=== PATIENT | male | born 1990 | race Caucasian/White ===

== ENCOUNTER 2019-06-29 22:38 | Emergency (ER) | payer BC ==
[2019-06-29] MEDS ORDERED: Albuterol/Ipratropium 3.0-0.5 MG/3 ML Neb Soln NEB ONE (22:45)
[2019-06-29] MEDS ORDERED: predniSONE 20 MG Tab PO ONE (22:45)
--- NOTE | 2019-06-29 22:47 | EDM.PDOC ---
ED HPI GENERAL MEDICAL PROBLEM - General Chief Complaint: Respiratory Problem Stated Complaint: ASTHMA ATTACK Time Seen by Provider: 06/29/19 22:40 - History of Present Illness INITIAL COMMENTS - FREE TEXT/NARRATIVE: HISTORY AND PHYSICAL: History of present illness: Patient 28-year-old white male with history of asthma whose been well controlled and presents with concern of wheezing and shortness of breath last 1- 2 days he is not using an inhaler in some time and has none available he denies fever chills nausea vomiting he is a smoker. Review of systems: As per history of present illness and below otherwise all systems reviewed and negative. Past medical history: As per history of present illness and as reviewed below otherwise noncontributory. Surgical history: As per history of present illness and as reviewed below otherwise noncontributory. Social history: No reported history of drug or alcohol abuse. Family history: As per history of present illness and as reviewed below otherwise noncontributory. Physical exam: HEENT: Atraumatic, normocephalic, pupils reactive, negative for conjunctival pallor or scleral icterus, mucous membranes moist, throat clear, neck supple, nontender, trachea midline. Lungs: Diminished and expiratory wheezing noted no crackles or rhonchi, breath sounds equal bilaterally, chest nontender. Heart: S1S2, regular, negative for clicks, rubs, or JVD. Abdomen: Soft, nondistended, nontender. Negative for masses or hepatosplenomegaly. Negative for costovertebral tenderness. Pelvis: Stable nontender. Genitourinary: Deferred. Rectal: Deferred. Extremities: Atraumatic, negative for cords or calf pain. Neurovascular unremarkable. Neuro: Awake, alert, oriented. Cranial nerves II through XII unremarkable. Cerebellum unremarkable. Motor and sensory unremarkable throughout. Exam nonfocal. Diagnostics: Chest x-ray Therapeutics: Albuterol ipratropium nebulizer prednisone 60 mg by mouth Impression: #1 acute asthmatic exacerbation Definitive disposition and diagnosis as appropriate pending reevaluation and review of above. - Related Data Allergies Allergy/AdvReac Type Severity Reaction Status Date / Time No Known Allergies Allergy Verified 06/29/19 22:50 Home Meds: Home Meds Inhaler For Asthma 06/29/19 [History] ED ROS GENERAL - Review of Systems Review Of Systems: ROS reveals no pertinent complaints other than HPI. ED EXAM, GENERAL - Physical Exam Exam: See Below (See dictation) Course - Vital Signs Last Recorded V/S: Last Vital Signs Temp 36.4 C 06/29/19 23:48 Pulse 90 06/29/19 23:48 Resp 18 06/29/19 23:48 BP 131/78 06/29/19 23:48 Pulse Ox 95 06/29/19 23:48 - Orders/Labs/Meds Orders: Active Orders 24 hr Category Date Time Status RT Aerosol Therapy [RC] ASDIRECTED Care 06/29/19 22:46 Active Meds: Medications Discontinued Medications Generic Name Dose Route Start Last Admin Trade Name Freq PRN Reason Stop Dose Admin Albuterol/Ipratropium 3 ml 06/29/19 22:45 06/29/19 22:57 Duoneb 3.0-0.5 Mg/3 Ml NEB 06/29/19 22:46 3 ml ONETIME ONE Administration Prednisone 60 mg 06/29/19 22:45 06/29/19 22:55 Prednisone PO 06/29/19 22:46 60 mg ONETIME ONE Administration Departure - Departure Time of Disposition: 22:47 Disposition: Home, Self-Care 01 Condition: Good Clinical Impression: Acute asthma - Discharge Information Referrals: PCP,None [Primary Care Provider] - Forms: ED Department Discharge Additional Instructions: The following information is given to patients seen in the emergency department who are being discharged to home. This information is to outline your options for follow-up care. We provide all patients seen in our emergency department with a follow-up referral. The need for follow-up, as well as the timing and circumstances, are variable depending upon the specifics of your emergency department visit. If you don't have a primary care physician on staff, we will provide you with a referral. We always advise you to contact your personal physician following an emergency department visit to inform them of the circumstance of the visit and for follow-up with them and/or the need for any referrals to a consulting specialist. The emergency department will also refer you to a specialist when appropriate. This referral assures that you have the opportunity for followup care with a specialist. All of these measure are taken in an effort to provide you with optimal care, which includes your followup. Under all circumstances we always encourage you to contact your private physician who remains a resource for coordinating your care. When calling for followup care, please make the office aware that this follow-up is from your recent emergency room visit. If for any reason you are refused follow-up, please contact the [facility] emergency department at and asked to speak to the emergency department charge nurse. Albuterol Medrol as prescribed. Smoking follow-up primary medical doctor return as needed as discussed - My Orders Last 24 Hours: My Active Orders 06/29/19 22:46 RT Aerosol Therapy [RC] ASDIRECTED - Assessment/Plan Last 24 Hours: My Active Orders 06/29/19 22:46 RT Aerosol Therapy [RC] ASDIRECTED
--- NOTE | 2019-06-29 23:27 | CR ---
HISTORY: Shortness of breath and asthma. COMPARISON: None available FINDINGS: A portable erect AP view of the chest was obtained at 23 0 7 hours. The lungs are clear. No focal or diffuse infiltrates are present. The heart is normal in size. The mediastinum is normal in appearance. The osseous structures are normal in appearance for the patient`s age. IMPRESSION: Normal portable chest single view. Dictated by Stiven Sharpe MD @ Jun 29 2019 11:24PM Signed by Dr. Stiven Sharpe @ Jun 29 2019 11:25PM
== END 2019-06-30 00:05 | disposition home or self-care (01) ==
LOC: MW.ED 22:38
DX: J45.901 Unspecified asthma with (acute) exacerbation (principal); Z79.899 Other long term (current) drug therapy
CPT/HCPCS: 71045; 94640; 99285; A9270; 99283; J7620-GY

== ENCOUNTER 2020-04-14 07:28 | Inpatient (IN) | payer BC ==
--- NOTE | 2020-04-14 07:47 | EDM.PDOC ---
ED HPI GENERAL MEDICAL PROBLEM - General Chief Complaint: Skin Complaint Stated Complaint: RASH ON LT LEG Time Seen by Provider: 04/14/20 07:35 Source of Information: Reports: Patient History Limitations: Reports: No Limitations - History of Present Illness INITIAL COMMENTS - FREE TEXT/NARRATIVE: 29-year-old male with no past medical history presents with worsening rash to the right lower extremity since Thursday. Rash started in the right anterior mid tib-fib, has radiated to the right knee and right ankle, associated with mild irritation, pruritus, redness, warmth. Denies fever, chills, nausea, vomiting, history of diabetes. He was started on Keflex per his PCP 3 days ago and the rash has progressively worsened. ROS: A 10-point review of systems, other than pertinent positives and negatives as stated per HPI, is otherwise negative Past medical history: No additional pertinent history Past Surgical history: No additional pertinent history Social history: No additional pertinent history Family history: No additional pertinent history PHYSICAL EXAM General: AOx4, GCS = 15, No distress HEENT: dry mucous membrane Neck: supple, no meningismus, no Kernig or Brudzinski Cardiac: S1S2 RRR Respiratory: CTAB, no crackles or rales, no wheezing Abdomen: Soft, nontender, no rebound or guarding, nondistended, no pulsatile mass. Back: nontender Musculoskeletal: NVI distally, right anterior tib/fib extensive erythema, mild warmth, mildly indurated. Compartments soft, no tenderness to posterior calf or thigh. Neuro: No focal deficits, CN 2 - 12 WNL. - Related Data Allergies Allergy/AdvReac Type Severity Reaction Status Date / Time No Known Allergies Allergy Verified 04/14/20 07:40 Home Meds: Home Meds cephALEXin [Cephalexin] 500 mg PO BID 04/14/20 [History] Past Medical History Respiratory History: Reports: Asthma - Infectious Disease History Infectious Disease History: Reports: Chicken Pox - Past Surgical History Respiratory Surgical History: Reports: None Social & Family History - Family History Family Medical History: Noncontributory - Caffeine Use Caffeine Use: Reports: None ED ROS GENERAL - Review of Systems Review Of Systems: Comprehensive ROS is negative, except as noted in HPI. ED EXAM, SKIN/RASH Exam: See Below (see dictation) EKG INTERPRETATION EKG Interpretation Comments: 56 Bpm, sinus bradycardia, normal QRS interval, no STEMI. EKG and rhythm strip interpreted by me at 0810 Course - Vital Signs Last Recorded V/S: Last Vital Signs Temp 96.3 F L 04/14/20 07:38 Pulse 59 L 04/14/20 08:14 Resp 16 04/14/20 08:14 BP 101/57 L 04/14/20 08:14 Pulse Ox 97 04/14/20 08:14 - Orders/Labs/Meds Orders: Active Orders 24 hr Category Date Time Status EKG Documentation Completion [RC] STAT Care 04/14/20 08:10 Active Tibia Fibula Rt [CR] Stat Exams 04/14/20 08:02 Taken CULTURE BLOOD [BC] Stat Lab 04/14/20 07:54 Received CULTURE BLOOD [BC] Stat Lab 04/14/20 08:06 Received PROCALCITONIN [REF] Stat Lab 04/14/20 07:54 Stop Req Sodium Chloride 0.9% [Normal Saline] Med 04/14/20 07:53 Active 10 ml IV ASDIRECTED PRN Sodium Chloride 0.9% [Normal Saline] 1,000 ml Med 04/14/20 08:00 Active IV ASDIRECTED Sodium Chloride 0.9% [Saline Flush] Med 04/14/20 07:53 Active 10 ml FLUSH ASDIRECTED PRN Sodium Chloride 0.9% [Saline Flush] Med 04/14/20 07:53 Active 2.5 ml FLUSH ASDIRECTED PRN VANCOmycin/Water for INJ (PEG) [VANCOmycin 1.5 GM/300 Med 04/14/20 07:59 Active ML Premix] 1.5 gm Premix Bag 1 bag IV ONETIME Blood Culture x2 Reflex Set [OM.PC] Stat Oth 04/14/20 07:53 Ordered Peripheral IV Insertion Adult [OM.PC] Stat Oth 04/14/20 07:53 Ordered Medication Orders Sodium Chloride (Normal Saline) 1,000 mls @ 125 mls/hr IV ASDIRECTED ANDRES Last Infusion: 04/14/20 08:14 Dose: 125 mls/hr Documented by: Infusion: 04/14/20 08:09 Dose: 999 mls/hr Documented by: Admin: 04/14/20 08:02 Dose: 125 mls/hr Documented by: KAYLEEN Vancomycin HCl 1.5 gm/ Premix 300 mls @ 150 mls/hr IV ONETIME ONE Stop: 04/14/20 09:58 Last Admin: 04/14/20 08:05 Dose: 150 mls/hr Documented by: KAYLEEN Sodium Chloride (Normal Saline) 10 ml IV ASDIRECTED PRN PRN Reason: IV Use Last Admin: 04/14/20 08:02 Dose: 10 ml Documented by: KAYLEEN Sodium Chloride (Saline Flush) 10 ml FLUSH ASDIRECTED PRN PRN Reason: Keep Vein Open Last Admin: 04/14/20 08:02 Dose: 10 ml Documented by: KAYLEEN Sodium Chloride (Saline Flush) 2.5 ml FLUSH ASDIRECTED PRN PRN Reason: Keep Vein Open Last Admin: 04/14/20 08:02 Dose: 2.5 ml Documented by: KAYLEEN Labs: Laboratory Tests 04/14/20 04/14/20 04/14/20 Range/Units 07:54 07:54 07:54 WBC 5.62 (4.0-11.0) K/uL RBC 4.80 (4.50-5.90) M/uL Hgb 14.1 (13.0-17.0) g/dL Hct 43.1 (38.0-50.0) % MCV 89.8 (80.0-98.0) fL MCH 29.4 (27.0-32.0) pg MCHC 32.7 (31.0-37.0) g/dL RDW Std Deviation 43.8 (28.0-62.0) fl RDW Coeff of Elizabeth 13 (11.0-15.0) % Plt Count 314 (150-400) K/uL MPV 10.40 (7.40-12.00) fL Neut % (Auto) 47.2 L (48.0-80.0) % Lymph % (Auto) 26.9 (16.0-40.0) % [place] % (Auto) 10.5 (0.0-15.0) % Eos % (Auto) 14.9 H (0.0-7.0) % Baso % (Auto) 0.5 (0.0-1.5) % Neut # (Auto) 2.7 (1.4-5.7) K/uL Lymph # (Auto) 1.5 (0.6-2.4) K/uL [place] # (Auto) 0.6 (0.0-0.8) K/uL Eos # (Auto) 0.8 H (0.0-0.7) K/uL Baso # (Auto) 0.0 (0.0-0.1) K/uL Nucleated RBC % 0.0 /100WBC Nucleated RBCs # 0 K/uL ESR 4 (0-14) mm/hr Sodium 140 (136-148) mmol/L Potassium 4.2 (3.5-5.1) mmol/L Chloride 106 (98-107) mmol/L Carbon Dioxide 26.6 (21.0-32.0) mmol/L BUN 18 (7.0-18.0) mg/dL Creatinine 1.3 (0.8-1.3) mg/dL Est Cr Clr Drug Dosing 85.01 mL/min Estimated GFR (MDRD) > 60.0 ml/min Glucose 103 (74-106) mg/dL Calcium 8.6 (8.5-10.1) mg/dL Total Bilirubin 0.2 (0.2-1.0) mg/dL AST 24 (15-37) IU/L ALT 47 (14-63) IU/L Alkaline Phosphatase 112 (46-116) U/L C-Reactive Protein < 0.20 (0.00-0.90) mg/dL Total Protein 7.3 (6.4-8.2) g/dL Albumin 3.9 (3.4-5.0) g/dL Globulin 3.4 (2.6-4.0) g/dL Albumin/Globulin Ratio 1.1 (0.9-1.6) Meds: Medications Generic Name Dose Route Start Last Admin Trade Name Freq PRN Reason Stop Dose Admin Sodium Chloride 1,000 mls @ 125 mls/hr 04/14/20 08:00 04/14/20 08:14 Normal Saline IV 125 mls/hr ASDIRECTED ANDRES Infusion Vancomycin HCl 1.5 gm/ Premix 300 mls @ 150 mls/hr 04/14/20 07:59 04/14/20 08:05 IV 04/14/20 09:58 150 mls/hr ONETIME ONE Administration Sodium Chloride 10 ml 04/14/20 07:53 04/14/20 08:02 Normal Saline IV 10 ml ASDIRECTED PRN Administration IV Use Sodium Chloride 10 ml 04/14/20 07:53 04/14/20 08:02 Saline Flush FLUSH 10 ml ASDIRECTED PRN Administration Keep Vein Open Sodium Chloride 2.5 ml 04/14/20 07:53 04/14/20 08:02 Saline Flush FLUSH 2.5 ml ASDIRECTED PRN Administration Keep Vein Open Discontinued Medications Generic Name Dose Route Start Last Admin Trade Name Freq PRN Reason Stop Dose Admin Diphenhydramine HCl 25 mg 04/14/20 07:53 04/14/20 08:01 Benadryl IVPUSH 04/14/20 07:54 25 mg ONETIME ONE Administration - Re-Assessments/Exams Free Text/Narrative Re-Assessment/Exam: 04/14/20 08:07 Patient blood pressure dropped to 80s over 40s immediately after blood draw, he is pale and clammy, heart rate in the high 40s, will check EKG. 04/14/20 09:[address] Groves, who agrees to admit patient. The hospitalist's documentation supersedes all other documentation on this patient with regard to any conflicts or discrepancies from this point forward. Any emergency conditions have been treated to the ability of the ED prior to admission. MEDICAL DECISION MAKING: I reviewed the patients past medical records, lab and radiographic findings. I discussed the case with him. My differential diagnosis included: Cellulitis failed outpatient therapy, necrotizing fasciitis. Patient needs IV antibiotics given that he has failed Keflex. Rash has progressed extensively up to the knee and the ankle. Patient likely developed a vasovagal response from IV blood draw, causing him to be hypotensive and bradycardic. This is transient and quickly improved with IV fluids. Patient was given IV vancomycin and cefepime in the ER. Discussed with Dr. Phoenix, he does not suspect necrotizing fasciitis. Departure - Departure Time of Disposition: :27 Disposition: Admitted As Inpatient 66 Condition: Good Clinical Impression: Cellulitis Qualifiers: Site of cellulitis: extremity Site of cellulitis of extremity: lower extremity Laterality: right Qualified Code(s): L03.115 - Cellulitis of right lower limb - Discharge Information *PRESCRIPTION DRUG MONITORING PROGRAM REVIEWED*: Not Applicable *COPY OF PRESCRIPTION DRUG MONITORING REPORT IN PATIENT DAMIEN: Not Applicable Instructions: Cellulitis, Adult Referrals: PCP,None [Primary Care Provider] - Forms: ED Department Discharge Sepsis Event Note (ED) - Focused Exam Vital Signs: Vital Signs Temp Pulse Resp BP Pulse Ox 04/14/20 08:14 59 L 16 101/57 L 97 04/14/20 08:09 45 L 15 86/43 L 95 04/14/20 07:38 96.3 F L 74 16 135/93 H 98 - My Orders Last 24 Hours: My Active Orders 04/14/20 07:53 Sodium Chloride 0.9% [Normal Saline] 10 ml IV ASDIRECTED PRN Sodium Chloride 0.9% [Saline Flush] 10 ml FLUSH ASDIRECTED PRN Sodium Chloride 0.9% [Saline Flush] 2.5 ml FLUSH ASDIRECTED PRN Blood Culture x2 Reflex Set [OM.PC] Stat Peripheral IV Insertion Adult [OM.PC] Stat 04/14/20 07:54 CULTURE BLOOD [BC] Stat PROCALCITONIN [REF] Stat 04/14/20 07:59 VANCOmycin/Water for INJ (PEG) [VANCOmycin 1.5 GM/300 ML Premix] 1.5 gm Premix Bag 1 bag IV ONETIME 04/14/20 08:00 Sodium Chloride 0.9% [Normal Saline] 1,000 ml IV ASDIRECTED 04/14/20 08:02 Tibia Fibula Rt [CR] Stat 04/14/20 08:06 CULTURE BLOOD [BC] Stat 04/14/20 08:10 EKG Documentation Completion [RC] STAT - Assessment/Plan Last 24 Hours: My Active Orders 04/14/20 07:53 Sodium Chloride 0.9% [Normal Saline] 10 ml IV ASDIRECTED PRN Sodium Chloride 0.9% [Saline Flush] 10 ml FLUSH ASDIRECTED PRN Sodium Chloride 0.9% [Saline Flush] 2.5 ml FLUSH ASDIRECTED PRN Blood Culture x2 Reflex Set [OM.PC] Stat Peripheral IV Insertion Adult [OM.PC] Stat 04/14/20 07:54 CULTURE BLOOD [BC] Stat PROCALCITONIN [REF] Stat 04/14/20 07:59 VANCOmycin/Water for INJ (PEG) [VANCOmycin 1.5 GM/300 ML Premix] 1.5 gm Premix Bag 1 bag IV ONETIME 04/14/20 08:00 Sodium Chloride 0.9% [Normal Saline] 1,000 ml IV ASDIRECTED 04/14/20 08:02 Tibia Fibula Rt [CR] Stat 04/14/20 08:06 CULTURE BLOOD [BC] Stat 04/14/20 08:10 EKG Documentation Completion [RC] STAT
[2020-04-14] MEDS ORDERED: diphenhydrAMINE 50 MG/ML SDV IVPUSH ONE (07:53)
[2020-04-14] MEDS ORDERED: Vancomycin 1.5 GM in Sodium Chloride 0.9% 500 ML IV ONE (07:53)
[2020-04-14] MEDS ORDERED: Sodium Chloride 0.9% 10 ML SDV IV PRN (07:53)
[2020-04-14] MEDS ORDERED: Sodium Chloride 0.9% 2.5 ML Syringe FLUSH PRN (07:53)
[2020-04-14] MEDS ORDERED: Sodium Chloride 0.9% 10 ML Syringe FLUSH PRN (07:53)
[2020-04-14] MEDS ORDERED: Sodium Chloride 0.9% 1,000 ML IV SCH (08:00)
[2020-04-14 08:28] LABS: BLOOD UREA NITROGEN,BUN 18 mg/dL (7.0-18.0); CARBON DIOXIDE,CO2 26.6 mmol/L (21.0-32.0); CHLORIDE,CL 106 mmol/L (98-107); GLUCOSE RANDOM 103 mg/dL (74-106); POTASSIUM,K 4.2 mmol/L (3.5-5.1); SODIUM,NA 140 mmol/L (136-148)
--- NOTE | 2020-04-14 09:30 | CR ---
Right tibia and fibula: 2 views of the right tibia and fibula were obtained. Comparison: No previous study. Mild soft tissue swelling is identified. No soft tissue air or radiopaque foreign body is seen. Bony structures show no acute fracture. Impression: 1. Mild soft tissue swelling. 2. No other acute abnormality is identified on right tibia and fibula exam. Diagnostic code #2 This report was dictated in MDT
[2020-04-14] MEDS ORDERED: Cefepime 2 GM in Premix Bag 1 BAG IV ONE (10:24)
--- NOTE | 2020-04-14 11:34 | PCM.HP.2 ---
H&P History of Present Illness - General Date of Service: 04/14/20 Admit Problem/Dx: Admission Diagnosis/Problem Admission Diagnosis/Problem Cellulitis - History of Present Illness Initial Comments - Free Text/Narative: 29 yo male with past medical history of asthma who presents with right lower leg rash. Three weeks ago he slid while playing baseball and developed a large abrasion on his right gordon. The abrasion initially scabbed over and healed well but two weeks ago he developed erythema around the area. Three days ago he was prescribed Keflex for a right leg cellulitis but the rash has worsened. The erythema extends from his ankles up to just below his knee and is circumferential. He denies any fevers, chills, nausea, pain, or swelling. - Related Data Allergies/Adverse Reactions: Allergies Allergy/AdvReac Type Severity Reaction Status Date / Time No Known Allergies Allergy Verified 04/14/20 07:40 Home Medications: Home Meds cephALEXin [Cephalexin] 500 mg PO BID 04/14/20 [History] Past Medical History HEENT History: Reports: None Cardiovascular History: Reports: None Respiratory History: Reports: Asthma Gastrointestinal History: Reports: None Genitourinary History: Reports: None Musculoskeletal History: Reports: None Neurological History: Reports: None Psychiatric History: Reports: None Endocrine/Metabolic History: Reports: None Hematologic History: Reports: None Immunologic History: Reports: None Oncologic (Cancer) History: Reports: None Dermatologic History: Reports: None - Infectious Disease History Infectious Disease History: Reports: Chicken Pox - Past Surgical History Respiratory Surgical History: Reports: None Social & Family History - Family History Family Medical History: Noncontributory - Tobacco Use Smoking Status *Q: Former Smoker Used Tobacco, but Quit: Yes Month/Year Tobacco Last Used: 2019 - Caffeine Use Caffeine Use: Reports: None - Recreational Drug Use Recreational Drug Use: No H&P Review of Systems - Review of Systems: Review Of Systems: Comprehensive ROS is negative, except as noted in HPI. Exam - Exam Exam: See Below - Vital Signs Vital Signs: Last Vital Signs Temp 35.7 C L 04/14/20 07:38 Pulse 68 04/14/20 09:40 Resp 18 04/14/20 09:40 BP 108/65 04/14/20 09:40 Pulse Ox 98 04/14/20 09:40 Weight: 102.6 kg - Exam General: Alert, Oriented HEENT: Conjunctiva Clear Neck: Supple, Trachea Midline Lungs: Clear to Auscultation, Normal Respiratory Effort Cardiovascular: Regular Rate, Regular Rhythm GI/Abdominal Exam: Normal Bowel Sounds, Soft, Non-Tender Extremities: Non-Tender, No Pedal Edema Skin: Other (erythema of right leg from ankle to knee. on anterior lower leg 10 by 5 cm area of healing abrasion., no area of fluctuance or drainage.) - Patient Data Lab Results Last 24 hrs: Laboratory Results - last 24 hr 04/14/20 04/14/20 04/14/20 Range/Units 07:54 07:54 07:54 WBC 5.62 (4.0-11.0) K/uL RBC 4.80 (4.50-5.90) M/uL Hgb 14.1 (13.0-17.0) g/dL Hct 43.1 (38.0-50.0) % MCV 89.8 (80.0-98.0) fL MCH 29.4 (27.0-32.0) pg MCHC 32.7 (31.0-37.0) g/dL RDW Std Deviation 43.8 (28.0-62.0) fl RDW Coeff of Elizabeth 13 (11.0-15.0) % Plt Count 314 (150-400) K/uL MPV 10.40 (7.40-12.00) fL Neut % (Auto) 47.2 L (48.0-80.0) % Lymph % (Auto) 26.9 (16.0-40.0) % [place] % (Auto) 10.5 (0.0-15.0) % Eos % (Auto) 14.9 H (0.0-7.0) % Baso % (Auto) 0.5 (0.0-1.5) % Neut # (Auto) 2.7 (1.4-5.7) K/uL Lymph # (Auto) 1.5 (0.6-2.4) K/uL [place] # (Auto) 0.6 (0.0-0.8) K/uL Eos # (Auto) 0.8 H (0.0-0.7) K/uL Baso # (Auto) 0.0 (0.0-0.1) K/uL Nucleated RBC % 0.0 /100WBC Nucleated RBCs # 0 K/uL ESR 4 (0-14) mm/hr Sodium 140 (136-148) mmol/L Potassium 4.2 (3.5-5.1) mmol/L Chloride 106 (98-107) mmol/L Carbon Dioxide 26.6 (21.0-32.0) mmol/L BUN 18 (7.0-18.0) mg/dL Creatinine 1.3 (0.8-1.3) mg/dL Est Cr Clr Drug Dosing 85.01 mL/min Estimated GFR (MDRD) > 60.0 ml/min Glucose 103 (74-106) mg/dL Calcium 8.6 (8.5-10.1) mg/dL Total Bilirubin 0.2 (0.2-1.0) mg/dL AST 24 (15-37) IU/L ALT 47 (14-63) IU/L Alkaline Phosphatase 112 (46-116) U/L C-Reactive Protein < 0.20 (0.00-0.90) mg/dL Total Protein 7.3 (6.4-8.2) g/dL Albumin 3.9 (3.4-5.0) g/dL Globulin 3.4 (2.6-4.0) g/dL Albumin/Globulin Ratio 1.1 (0.9-1.6) COVID-19 ([facility]) (NEGATIVE) 04/14/20 Range/Units 09:45 WBC (4.0-11.0) K/uL RBC (4.50-5.90) M/uL Hgb (13.0-17.0) g/dL Hct (38.0-50.0) % MCV (80.0-98.0) fL MCH (27.0-32.0) pg MCHC (31.0-37.0) g/dL RDW Std Deviation (28.0-62.0) fl RDW Coeff of Elizabeth (11.0-15.0) % Plt Count (150-400) K/uL MPV (7.40-12.00) fL Neut % (Auto) (48.0-80.0) % Lymph % (Auto) (16.0-40.0) % [place] % (Auto) (0.0-15.0) % Eos % (Auto) (0.0-7.0) % Baso % (Auto) (0.0-1.5) % Neut # (Auto) (1.4-5.7) K/uL Lymph # (Auto) (0.6-2.4) K/uL Drew # (Auto) (0.0-0.8) K/uL Eos # (Auto) (0.0-0.7) K/uL Baso # (Auto) (0.0-0.1) K/uL Nucleated RBC % /100WBC Nucleated RBCs # K/uL ESR (0-14) mm/hr Sodium (136-148) mmol/L Potassium (3.5-5.1) mmol/L Chloride (98-107) mmol/L Carbon Dioxide (21.0-32.0) mmol/L BUN (7.0-18.0) mg/dL Creatinine (0.8-1.3) mg/dL Est Cr Clr Drug Dosing mL/min Estimated GFR (MDRD) ml/min Glucose (74-106) mg/dL Calcium (8.5-10.1) mg/dL Total Bilirubin (0.2-1.0) mg/dL AST (15-37) IU/L ALT (14-63) IU/L Alkaline Phosphatase (46-116) U/L C-Reactive Protein (0.00-0.90) mg/dL Total Protein (6.4-8.2) g/dL Albumin (3.4-5.0) g/dL Globulin (2.6-4.0) g/dL Albumin/Globulin Ratio (0.9-1.6) COVID-19 ([facility]RIY) NEGATIVE (NEGATIVE) Result Diagrams: 04/14/20 07:54 04/14/20 07:54 Sepsis Event Note - Evaluation Sepsis Screening Result: No Definite Risk - Focused Exam Vital Signs: Vital Signs Temp Pulse Resp BP Pulse Ox 04/14/20 09:40 68 18 108/65 98 04/14/20 08:14 59 L 16 101/57 L 97 04/14/20 08:09 45 L 15 86/43 L 95 04/14/20 07:38 35.7 C L 74 16 135/93 H 98 Date Exam was Performed: 04/14/20 Time Exam was Performed: 11:36 Problem List Initiated/Reviewed/Updated: Yes Orders Last 24hrs: Active Orders 24 hr Category Date Time Status Admission Status [Patient Status] [ADT] Stat ADT 04/14/20 09:28 Active EKG Documentation Completion [RC] STAT Care 04/14/20 08:10 Active Oxygen Therapy [RC] PRN Care 04/14/20 11:31 Ordered Up ad Hemalatha [RC] ASDIRECTED Care 04/14/20 11:31 Ordered VTE/DVT Education [RC] PER UNIT ROUTINE Care 04/14/20 11:31 Ordered Vital Signs [RC] Q4H Care 04/14/20 11:31 Ordered Regular Diet [DIET] Diet 04/14/20 Breakfast Ordered BASIC METABOLIC PANEL,BMP [CHEM] AM Lab 04/15/20 05:11 Ordered BASIC METABOLIC PANEL,BMP [CHEM] AM Lab 04/16/20 05:11 Ordered CBC WITH AUTO DIFF [HEME] AM Lab 04/15/20 05:11 Ordered CBC WITH AUTO DIFF [HEME] AM Lab 04/16/20 05:11 Ordered CULTURE BLOOD [BC] Stat Lab 04/14/20 07:54 Received CULTURE BLOOD [BC] Stat Lab 04/14/20 08:06 Received PROCALCITONIN [REF] Stat Lab 04/14/20 07:54 Stop Req Cefepime [Maxipime in D5W 2 GM/50 ML] 2 gm Med 04/14/20 22:00 Ordered Premix Bag 1 bag IV Q12H Heparin Sodium Med 04/14/20 11:45 Ordered 5,000 units SUBCUT Q8H Pharmacy to Dose - Vancomycin Med 04/14/20 11:30 Ordered 1 dose .XX ASDIRECTED Sodium Chloride 0.9% [Normal Saline] Med 04/14/20 07:53 Active 10 ml IV ASDIRECTED PRN Sodium Chloride 0.9% [Normal Saline] 1,000 ml Med 04/14/20 08:00 Active IV ASDIRECTED Sodium Chloride 0.9% [Saline Flush] Med 04/14/20 07:53 Active 10 ml FLUSH ASDIRECTED PRN Sodium Chloride 0.9% [Saline Flush] Med 04/14/20 07:53 Active 2.5 ml FLUSH ASDIRECTED PRN Blood Culture x2 Reflex Set [OM.PC] Stat Oth 04/14/20 07:53 Ordered Peripheral IV Insertion Adult [OM.PC] Stat Oth 04/14/20 07:53 Ordered Resuscitation Status Routine Resus Stat 04/14/20 11:31 Ordered Medication Orders Heparin Sodium (Porcine) (Heparin Sodium) 5,000 units SUBCUT Q8H [facility] Sodium Chloride (Normal Saline) 1,000 mls @ 125 mls/hr IV ASDIRECTED [facility] Last Infusion: 04/14/20 08:14 Dose: 125 mls/hr Documented by: Infusion: 04/14/20 08:09 Dose: 999 mls/hr Documented by: Admin: 04/14/20 08:02 Dose: 125 mls/hr Documented by: KAYLEEN Cefepime HCl 2 gm/ Premix 50 mls @ 100 mls/hr IV Q12H [facility] Sodium Chloride (Normal Saline) 10 ml IV ASDIRECTED PRN PRN Reason: IV Use Last Admin: 04/14/20 08:02 Dose: 10 ml Documented by: KAYLEEN Sodium Chloride (Saline Flush) 10 ml FLUSH ASDIRECTED PRN PRN Reason: Keep Vein Open Last Admin: 04/14/20 08:02 Dose: 10 ml Documented by: KAYLEEN Sodium Chloride (Saline Flush) 2.5 ml FLUSH ASDIRECTED PRN PRN Reason: Keep Vein Open Last Admin: 04/14/20 08:02 Dose: 2.5 ml Documented by: KAYLEEN Vancomycin HCl (Pharmacy To Dose - Vancomycin) 1 dose .XX ASDIRECTED [facility] Assessment/Plan Comment:: 29 yo male admitted for right leg cellulitis that failed outpatient therapy. We will treat with IV vancomycin and cefepime.
[2020-04-14] MEDS: Heparin Sodium 5,000 Units/ML Vial SUBCUT SCH ×2 (11:54→20:49)
[2020-04-14] MEDS: diphenhydrAMINE 25 MG Cap PO PRN ×2 (13:31→20:50)
[2020-04-14] MEDS: Cefepime 2 GM in Premix Bag 1 BAG IV SCH (22:34)
[2020-04-15] MEDS: Heparin Sodium 5,000 Units/ML Vial SUBCUT SCH ×3 (04:34→19:59)
[2020-04-15 05:36] LABS: BLOOD UREA NITROGEN,BUN 14 mg/dL (7.0-18.0); CARBON DIOXIDE,CO2 25.3 mmol/L (21.0-32.0); CHLORIDE,CL 107 mmol/L (98-107); GLUCOSE RANDOM 93 mg/dL (74-106); POTASSIUM,K 4.5 mmol/L (3.5-5.1); SODIUM,NA 140 mmol/L (136-148)
[2020-04-15] MEDS: diphenhydrAMINE 25 MG Cap PO PRN ×2 (08:11→19:59)
[2020-04-15] MEDS: Cefepime 2 GM in Premix Bag 1 BAG IV SCH (10:29)
--- NOTE | 2020-04-15 11:13 | PCM.PN ---
- General Info Date of Service: 04/15/20 - Review of Systems Systems Review Comment:: itching of leg has decreased - Patient Data Vitals - Most Recent: Last Vital Signs Temp 37.0 C 04/15/20 08:02 Pulse 69 04/15/20 08:02 Resp 17 04/15/20 08:02 BP 113/63 04/15/20 08:02 Pulse Ox 94 L 04/15/20 08:02 Weight - Most Recent: 222 kg I&O - Last 24 Hours: Intake & Output 04/14/20 04/15/20 04/15/20 22:59 06:59 14:59 Intake Total 1267 1150 Output Total 600 1500 Balance 667 -350 Lab Results Last 24 Hours: Laboratory Results - last 24 hr 04/15/20 04/15/20 Range/Units 05:10 05:10 WBC 6.33 (4.0-11.0) K/uL RBC 4.65 (4.50-5.90) M/uL Hgb 14.0 (13.0-17.0) g/dL Hct 41.7 (38.0-50.0) % MCV 89.7 (80.0-98.0) fL MCH 30.1 (27.0-32.0) pg MCHC 33.6 (31.0-37.0) g/dL RDW Std Deviation 44.0 (28.0-62.0) fl RDW Coeff of Elizabeth 14 (11.0-15.0) % Plt Count 277 (150-400) K/uL MPV 10.20 (7.40-12.00) fL Neut % (Auto) 55.2 (48.0-80.0) % Lymph % (Auto) 22.7 (16.0-40.0) % [place] % (Auto) 7.1 (0.0-15.0) % Eos % (Auto) 14.7 H (0.0-7.0) % Baso % (Auto) 0.3 (0.0-1.5) % Neut # (Auto) 3.5 (1.4-5.7) K/uL Lymph # (Auto) 1.4 (0.6-2.4) K/uL [place] # (Auto) 0.5 (0.0-0.8) K/uL Eos # (Auto) 0.9 H (0.0-0.7) K/uL Baso # (Auto) 0.0 (0.0-0.1) K/uL Nucleated RBC % 0.0 /100WBC Nucleated RBCs # 0 K/uL Sodium 140 (136-148) mmol/L Potassium 4.5 (3.5-5.1) mmol/L Chloride 107 (98-107) mmol/L Carbon Dioxide 25.3 (21.0-32.0) mmol/L BUN 14 (7.0-18.0) mg/dL Creatinine 1.3 (0.8-1.3) mg/dL Est Cr Clr Drug Dosing 85.01 mL/min Estimated GFR (MDRD) > 60.0 ml/min Glucose 93 (74-106) mg/dL Calcium 7.9 L (8.5-10.1) mg/dL Jarod Results Last 24 Hours: Microbiology 04/14/20 08:06 Aerobic Blood Culture - Preliminary Blood - Venous - Lab Draw NO GROWTH AFTER 1 DAY Anaerobic Blood Culture - Preliminary NO GROWTH AFTER 1 DAY 04/14/20 07:54 Aerobic Blood Culture - Preliminary Blood - Venous NO GROWTH AFTER 1 DAY Anaerobic Blood Culture - Preliminary NO GROWTH AFTER 1 DAY Med Orders - Current: Current Medications Diphenhydramine HCl (Benadryl) 25 mg PO Q6H PRN PRN Reason: Itching Last Admin: 04/15/20 08:11 Dose: 25 mg Documented by: Heparin Sodium (Porcine) (Heparin Sodium) 5,000 units SUBCUT Q8H [facility] Last Admin: 04/15/20 04:34 Dose: Not Given Documented by: Cefepime HCl 2 gm/ Premix 50 mls @ 100 mls/hr IV Q12H [facility] Last Admin: 04/15/20 10:29 Dose: 100 mls/hr Documented by: Vancomycin HCl 1.5 gm/ Premix 300 mls @ 150 mls/hr IV Q12H [facility] Last Admin: 04/14/20 23:15 Dose: 150 mls/hr Documented by: Sodium Chloride (Normal Saline) 10 ml IV ASDIRECTED PRN PRN Reason: IV Use Last Admin: 04/14/20 08:02 Dose: 10 ml Documented by: Sodium Chloride (Saline Flush) 10 ml FLUSH ASDIRECTED PRN PRN Reason: Keep Vein Open Last Admin: 04/14/20 08:02 Dose: 10 ml Documented by: Sodium Chloride (Saline Flush) 2.5 ml FLUSH ASDIRECTED PRN PRN Reason: Keep Vein Open Last Admin: 04/14/20 08:02 Dose: 2.5 ml Documented by: Vancomycin HCl (Pharmacy To Dose - Vancomycin) 1 dose .XX ASDIRECTED [facility] Discontinued Medications Diphenhydramine HCl (Benadryl) 25 mg IVPUSH ONETIME ONE Stop: 04/14/20 07:54 Last Admin: 04/14/20 08:01 Dose: 25 mg Documented by: Sodium Chloride (Normal Saline) 1,000 mls @ 125 mls/hr IV ASDIRECTED [facility] Stop: 04/14/20 20:00 Last Infusion: 04/14/20 08:14 Dose: 125 mls/hr Documented by: Vancomycin HCl 1.5 gm/ Premix 300 mls @ 150 mls/hr IV ONETIME ONE Stop: 04/14/20 09:58 Last Admin: 04/14/20 08:05 Dose: 150 mls/hr Documented by: Cefepime HCl 2 gm/ Premix 50 mls @ 100 mls/hr IV ONETIME ONE Stop: 04/14/20 10:53 Last Admin: 04/14/20 11:48 Dose: 100 mls/hr Documented by: - Exam General: Alert, Oriented Neck: Supple Lungs: Clear to Auscultation, Normal Respiratory Effort Cardiovascular: Regular Rate, Regular Rhythm GI/Abdominal Exam: Soft, Non-Tender Extremities: Non-Tender, No Pedal Edema Skin: Rash (erythema of right anterior lower leg mildly improved) Neurological: No New Focal Deficit Sepsis Event Note - Evaluation Sepsis Screening Result: No Definite Risk - Focused Exam Vital Signs: Vital Signs Temp Pulse Resp BP Pulse Ox 04/15/20 08:02 37.0 C 69 17 113/63 94 L 04/15/20 04:11 36.9 C 65 16 99/48 L 96 Date Exam was Performed: 04/15/20 Time Exam was Performed: 11:11 - Problem List Review Problem List Initiated/Reviewed/Updated: Yes - My Orders Last 24 Hours: My Active Orders 04/14/20 11:30 Pharmacy to Dose - Vancomycin 1 dose .XX ASDIRECTED 04/14/20 11:31 Oxygen Therapy [RC] PRN Up ad Hemalatha [RC] ASDIRECTED VTE/DVT Education [RC] PER UNIT ROUTINE Vital Signs [RC] Q4H Resuscitation Status Routine 04/14/20 11:45 Heparin Sodium 5,000 units SUBCUT Q8H VANCOmycin/Water for INJ (PEG) [VANCOmycin 1.5 GM/300 ML Premix] 1.5 gm Premix Bag 1 bag IV Q12H 04/14/20 12:47 diphenhydrAMINE [Benadryl] 25 mg PO Q6H PRN 04/14/20 22:00 Cefepime [Maxipime in D5W 2 GM/50 ML] 2 gm Premix Bag 1 bag IV Q12H 04/16/20 05:11 BASIC METABOLIC PANEL,BMP [CHEM] AM CBC WITH AUTO DIFF [HEME] AM - Plan Plan:: 29 yo male admitted for right leg cellulitis that failed outpatient therapy. We will continue with IV vancomycin and cefepime.
[2020-04-16] MEDS: Heparin Sodium 5,000 Units/ML Vial SUBCUT SCH (03:59)
[2020-04-16 05:49] LABS: BLOOD UREA NITROGEN,BUN 16 mg/dL (7.0-18.0); CARBON DIOXIDE,CO2 25.6 mmol/L (21.0-32.0); CHLORIDE,CL 106 mmol/L (98-107); GLUCOSE RANDOM 93 mg/dL (74-106); POTASSIUM,K 4.3 mmol/L (3.5-5.1); SODIUM,NA 140 mmol/L (136-148)
[2020-04-16] MEDS: diphenhydrAMINE 25 MG Cap PO PRN ×3 (07:46→20:40)
--- NOTE | 2020-04-16 10:14 | PCM.PN ---
- General Info Date of Service: 04/16/20 Subjective Update: No complaints overnight. Patient reports that rash in right leg appears to be improving. Still complaints of mild itchiness in b/l hands but reports it is improving. Denies any pain, fevers or chills. - Patient Data Vitals - Most Recent: Last Vital Signs Temp 36.5 C 04/16/20 07:05 Pulse 61 04/16/20 07:05 Resp 16 04/16/20 07:05 BP 123/63 04/16/20 07:05 Pulse Ox 96 04/16/20 07:05 Weight - Most Recent: 102.6 kg I&O - Last 24 Hours: Intake & Output 04/15/20 04/16/20 04/16/20 22:59 06:59 14:59 Intake Total 700 300 Output Total 1100 1425 Balance -400 -1125 Lab Results Last 24 Hours: Laboratory Results - last 24 hr 04/15/20 04/16/20 04/16/20 Range/Units 23:15 05:25 05:25 WBC 6.30 (4.0-11.0) K/uL RBC 4.82 (4.50-5.90) M/uL Hgb 14.1 (13.0-17.0) g/dL Hct 43.0 (38.0-50.0) % MCV 89.2 (80.0-98.0) fL MCH 29.3 (27.0-32.0) pg MCHC 32.8 (31.0-37.0) g/dL RDW Std Deviation 44.7 (28.0-62.0) fl RDW Coeff of Elizabeth 14 (11.0-15.0) % Plt Count 307 (150-400) K/uL MPV 10.40 (7.40-12.00) fL Neut % (Auto) 53.1 (48.0-80.0) % Lymph % (Auto) 24.8 (16.0-40.0) % [place] % (Auto) 7.0 (0.0-15.0) % Eos % (Auto) 14.8 H (0.0-7.0) % Baso % (Auto) 0.3 (0.0-1.5) % Neut # (Auto) 3.4 (1.4-5.7) K/uL Lymph # (Auto) 1.6 (0.6-2.4) K/uL [place] # (Auto) 0.4 (0.0-0.8) K/uL Eos # (Auto) 0.9 H (0.0-0.7) K/uL Baso # (Auto) 0.0 (0.0-0.1) K/uL Nucleated RBC % 0.0 /100WBC Nucleated RBCs # 0 K/uL Sodium 140 (136-148) mmol/L Potassium 4.3 (3.5-5.1) mmol/L Chloride 106 (98-107) mmol/L Carbon Dioxide 25.6 (21.0-32.0) mmol/L BUN 16 (7.0-18.0) mg/dL Creatinine 1.2 (0.8-1.3) mg/dL Est Cr Clr Drug Dosing 92.09 mL/min Estimated GFR (MDRD) > 60.0 ml/min Glucose 93 (74-106) mg/dL Calcium 8.0 L (8.5-10.1) mg/dL Vancomycin Trough 10.7 H (5.0-10.0) ug/mL Jarod Results Last 24 Hours: Microbiology 04/14/20 08:06 Aerobic Blood Culture - Preliminary Blood - Venous - Lab Draw NO GROWTH AFTER 2 DAYS Anaerobic Blood Culture - Preliminary NO GROWTH AFTER 2 DAYS 04/14/20 07:54 Aerobic Blood Culture - Preliminary Blood - Venous NO GROWTH AFTER 2 DAYS Anaerobic Blood Culture - Preliminary NO GROWTH AFTER 2 DAYS Med Orders - Current: Current Medications Diphenhydramine HCl (Benadryl) 25 mg PO Q6H PRN PRN Reason: Itching Last Admin: 04/16/20 07:46 Dose: 25 mg Documented by: Enoxaparin Sodium (Lovenox) 40 mg SUBCUT Q24H [facility] Vancomycin HCl 1.5 gm/ Premix 300 mls @ 150 mls/hr IV Q12H [facility] Last Admin: 04/15/20 23:50 Dose: 150 mls/hr Documented by: Sodium Chloride (Normal Saline) 10 ml IV ASDIRECTED PRN PRN Reason: IV Use Last Admin: 04/14/20 08:02 Dose: 10 ml Documented by: Sodium Chloride (Saline Flush) 10 ml FLUSH ASDIRECTED PRN PRN Reason: Keep Vein Open Last Admin: 04/14/20 08:02 Dose: 10 ml Documented by: Sodium Chloride (Saline Flush) 2.5 ml FLUSH ASDIRECTED PRN PRN Reason: Keep Vein Open Last Admin: 04/14/20 08:02 Dose: 2.5 ml Documented by: Vancomycin HCl (Pharmacy To Dose - Vancomycin) 1 dose .XX ASDIRECTED [facility] Discontinued Medications Diphenhydramine HCl (Benadryl) 25 mg IVPUSH ONETIME ONE Stop: 04/14/20 07:54 Last Admin: 04/14/20 08:01 Dose: 25 mg Documented by: Heparin Sodium (Porcine) (Heparin Sodium) 5,000 units SUBCUT Q8H [facility] Last Admin: 04/16/20 03:59 Dose: Not Given Documented by: Sodium Chloride (Normal Saline) 1,000 mls @ 125 mls/hr IV ASDIRECTED [facility] Stop: 04/14/20 20:00 Last Infusion: 04/14/20 08:14 Dose: 125 mls/hr Documented by: Vancomycin HCl 1.5 gm/ Premix 300 mls @ 150 mls/hr IV ONETIME ONE Stop: 04/14/20 09:58 Last Admin: 04/14/20 08:05 Dose: 150 mls/hr Documented by: Cefepime HCl 2 gm/ Premix 50 mls @ 100 mls/hr IV ONETIME ONE Stop: 04/14/20 10:53 Last Admin: 04/14/20 11:48 Dose: 100 mls/hr Documented by: Cefepime HCl 2 gm/ Premix 50 mls @ 100 mls/hr IV Q12H [facility] Last Admin: 04/15/20 10:29 Dose: 100 mls/hr Documented by: - Exam General: Alert, Oriented, Cooperative, No Acute Distress Lungs: Clear to Auscultation, Normal Respiratory Effort Cardiovascular: Regular Rate, Regular Rhythm GI/Abdominal Exam: Normal Bowel Sounds, Soft, Non-Tender, No Distention Extremities: Other (RLE: area of erythema is less intense and margins have receded approxiamtely 1 cm.) Sepsis Event Note - Evaluation Sepsis Screening Result: No Definite Risk - Focused Exam Vital Signs: Vital Signs Temp Pulse Resp BP Pulse Ox 04/16/20 07:05 36.5 C 61 16 123/63 96 04/16/20 05:26 36.7 C 62 17 117/72 95 04/15/20 23:07 36.7 C 70 16 116/65 95 Date Exam was Performed: 04/16/20 Time Exam was Performed: 10:10 - Problem List Review Problem List Initiated/Reviewed/Updated: Yes - Plan Plan:: Assessment and Plan: 1. RLE cellulitis: - Continue IV vancomycin. Cellulitis appears to be improving. Will continue to monitor. 2. DVT prophylaxis: lovenox.
[2020-04-16] MEDS: Enoxaparin 40 MG/0.4 ML Syringe SUBCUT SCH (12:45)
[2020-04-17] MEDS: diphenhydrAMINE 25 MG Cap PO PRN ×3 (04:15→22:02)
[2020-04-17 05:49] LABS: BLOOD UREA NITROGEN,BUN 18 mg/dL (7.0-18.0); CARBON DIOXIDE,CO2 26.8 mmol/L (21.0-32.0); CHLORIDE,CL 105 mmol/L (98-107); GLUCOSE RANDOM 92 mg/dL (74-106); POTASSIUM,K 4.4 mmol/L (3.5-5.1); SODIUM,NA 139 mmol/L (136-148)
[2020-04-17] MEDS ORDERED: diphenhydrAMINE 50 MG/ML SDV IVPUSH ONE ×2 (11:14→13:30)
[2020-04-17] MEDS ORDERED: methylPREDNISolone Sodium Succinate 40 MG/1 ML SDV IV ONE (11:15)
--- NOTE | 2020-04-17 11:56 | PCM.PN ---
<Suresh Whitney M - Last Filed: 04/17/20 14:02> - General Info Date of Service: 04/17/20 Subjective Update: Patient reports RLE rash is improving. Notes that it does get itchy at times. Also has itchy small bumps on hands since admission. - Patient Data Vitals - Most Recent: Last Vital Signs Temp 36.2 C 04/17/20 08:00 Pulse 64 04/17/20 08:00 Resp 17 04/17/20 08:00 BP 118/75 04/17/20 08:00 Pulse Ox 96 04/17/20 08:00 Weight - Most Recent: 102.6 kg I&O - Last 24 Hours: Intake & Output 04/16/20 04/17/20 04/17/20 22:59 06:59 14:59 Intake Total 950 1100 Output Total 1200 1050 Balance -250 50 Lab Results Last 24 Hours: Laboratory Results - last 24 hr 04/17/20 04/17/20 Range/Units 05:15 05:15 WBC 8.09 (4.0-11.0) K/uL RBC 4.83 (4.50-5.90) M/uL Hgb 14.5 (13.0-17.0) g/dL Hct 43.2 (38.0-50.0) % MCV 89.4 (80.0-98.0) fL MCH 30.0 (27.0-32.0) pg MCHC 33.6 (31.0-37.0) g/dL RDW Std Deviation 43.8 (28.0-62.0) fl RDW Coeff of Elizabeth 13 (11.0-15.0) % Plt Count 316 (150-400) K/uL MPV 10.60 (7.40-12.00) fL Neut % (Auto) 55.6 (48.0-80.0) % Lymph % (Auto) 21.4 (16.0-40.0) % [place] % (Auto) 9.1 (0.0-15.0) % Eos % (Auto) 13.7 H (0.0-7.0) % Baso % (Auto) 0.2 (0.0-1.5) % Neut # (Auto) 4.5 (1.4-5.7) K/uL Lymph # (Auto) 1.7 (0.6-2.4) K/uL [place] # (Auto) 0.7 (0.0-0.8) K/uL Eos # (Auto) 1.1 H (0.0-0.7) K/uL Baso # (Auto) 0.0 (0.0-0.1) K/uL Nucleated RBC % 0.0 /100WBC Nucleated RBCs # 0 K/uL Sodium 139 (136-148) mmol/L Potassium 4.4 (3.5-5.1) mmol/L Chloride 105 (98-107) mmol/L Carbon Dioxide 26.8 (21.0-32.0) mmol/L BUN 18 (7.0-18.0) mg/dL Creatinine 1.3 (0.8-1.3) mg/dL Est Cr Clr Drug Dosing 85.01 mL/min Estimated GFR (MDRD) > 60.0 ml/min Glucose 92 (74-106) mg/dL Calcium 8.5 (8.5-10.1) mg/dL Jarod Results Last 24 Hours: Microbiology 04/14/20 08:06 Aerobic Blood Culture - Preliminary Blood - Venous - Lab Draw NO GROWTH AFTER 3 DAYS Anaerobic Blood Culture - Preliminary NO GROWTH AFTER 3 DAYS 04/14/20 07:54 Aerobic Blood Culture - Preliminary Blood - Venous NO GROWTH AFTER 3 DAYS Anaerobic Blood Culture - Preliminary NO GROWTH AFTER 3 DAYS Med Orders - Current: Current Medications Diphenhydramine HCl (Benadryl) 25 mg PO Q6H PRN PRN Reason: Itching Last Admin: 04/17/20 10:31 Dose: 25 mg Documented by: Enoxaparin Sodium (Lovenox) 40 mg SUBCUT Q24H [facility] Last Admin: 04/16/20 12:45 Dose: Not Given Documented by: Vancomycin HCl 1.5 gm/ Premix 300 mls @ 150 mls/hr IV Q12H [facility] Last Admin: 04/16/20 22:44 Dose: 150 mls/hr Documented by: Sodium Chloride (Normal Saline) 10 ml IV ASDIRECTED PRN PRN Reason: IV Use Last Admin: 04/14/20 08:02 Dose: 10 ml Documented by: Sodium Chloride (Saline Flush) 10 ml FLUSH ASDIRECTED PRN PRN Reason: Keep Vein Open Last Admin: 04/14/20 08:02 Dose: 10 ml Documented by: Sodium Chloride (Saline Flush) 2.5 ml FLUSH ASDIRECTED PRN PRN Reason: Keep Vein Open Last Admin: 04/14/20 08:02 Dose: 2.5 ml Documented by: Vancomycin HCl (Pharmacy To Dose - Vancomycin) 1 dose .XX ASDIRECTED [facility] Discontinued Medications Diphenhydramine HCl (Benadryl) 25 mg IVPUSH ONETIME ONE Stop: 04/14/20 07:54 Last Admin: 04/14/20 08:01 Dose: 25 mg Documented by: Diphenhydramine HCl (Benadryl) 50 mg IVPUSH ONETIME ONE Stop: 04/17/20 11:15 Heparin Sodium (Porcine) (Heparin Sodium) 5,000 units SUBCUT Q8H [facility] Last Admin: 04/16/20 03:59 Dose: Not Given Documented by: Sodium Chloride (Normal Saline) 1,000 mls @ 125 mls/hr IV ASDIRECTED [facility] Stop: 04/14/20 20:00 Last Infusion: 04/14/20 08:14 Dose: 125 mls/hr Documented by: Vancomycin HCl 1.5 gm/ Premix 300 mls @ 150 mls/hr IV ONETIME ONE Stop: 04/14/20 09:58 Last Admin: 04/14/20 08:05 Dose: 150 mls/hr Documented by: Cefepime HCl 2 gm/ Premix 50 mls @ 100 mls/hr IV ONETIME ONE Stop: 04/14/20 10:53 Last Admin: 04/14/20 11:48 Dose: 100 mls/hr Documented by: Cefepime HCl 2 gm/ Premix 50 mls @ 100 mls/hr IV Q12H [facility] Last Admin: 04/15/20 10:29 Dose: 100 mls/hr Documented by: Methylprednisolone Sodium Succinate (Solu-Medrol) 40 mg IV ONETIME ONE Stop: 04/17/20 11:16 - Exam General: Alert, Oriented, Cooperative, No Acute Distress Lungs: Clear to Auscultation, Normal Respiratory Effort Cardiovascular: Regular Rate, Regular Rhythm GI/Abdominal Exam: Normal Bowel Sounds, Soft, Non-Tender, No Distention Extremities: Other (RLE: area of erythema appears mildly less red today, has not spread beyond marked lines. Non-tender to palpation. ) Sepsis Event Note - Evaluation Sepsis Screening Result: No Definite Risk - Focused Exam Vital Signs: Vital Signs Temp Pulse Resp BP Pulse Ox 04/17/20 08:00 36.2 C 64 17 118/75 96 04/17/20 04:15 36.5 C 64 17 105/62 95 Date Exam was Performed: 04/17/20 Time Exam was Performed: 14:02 - Problem List Review Problem List Initiated/Reviewed/Updated: Yes - Plan Plan:: Assessment and Plan: 1. RLE cellulitis: - Continue IV vancomycin. Will add IV ceftriaxone qd. Will give IM solumedrol 40 mg x 1. Will continue to monitor for improvement. 2. DVT prophylaxis: lovenox. <Amando Sanchez - Last Filed: 04/18/20 11:27> - General Info Subjective Update: I have seen and evaluated the patient and agree with the residents note unless specified in my note - Patient Data Vitals - Most Recent: Last Vital Signs Temp 36.6 C 04/18/20 07:49 Pulse 90 04/18/20 07:49 Resp 18 04/18/20 07:49 BP 122/62 04/18/20 07:49 Pulse Ox 96 04/18/20 07:49 I&O - Last 24 Hours: Intake & Output 04/17/20 04/18/20 04/18/20 22:59 06:59 14:59 Intake Total 590 1200 Output Total 620 1300 Balance -30 -100 Lab Results Last 24 Hours: Laboratory Results - last 24 hr 04/18/20 04/18/20 Range/Units 05:19 05:19 WBC 11.77 H (4.0-11.0) K/uL RBC 4.66 (4.50-5.90) M/uL Hgb 13.8 (13.0-17.0) g/dL Hct 41.2 (38.0-50.0) % MCV 88.4 (80.0-98.0) fL MCH 29.6 (27.0-32.0) pg MCHC 33.5 (31.0-37.0) g/dL RDW Std Deviation 43.6 (28.0-62.0) fl RDW Coeff of Elizabeth 13 (11.0-15.0) % Plt Count 329 (150-400) K/uL MPV 10.40 (7.40-12.00) fL Neut % (Auto) 78.6 (48.0-80.0) % Lymph % (Auto) 10.8 L (16.0-40.0) % [place] % (Auto) 8.2 (0.0-15.0) % Eos % (Auto) 2.1 (0.0-7.0) % Baso % (Auto) 0.3 (0.0-1.5) % Neut # (Auto) 9.3 H (1.4-5.7) K/uL Lymph # (Auto) 1.3 (0.6-2.4) K/uL [place] # (Auto) 1.0 H (0.0-0.8) K/uL Eos # (Auto) 0.3 (0.0-0.7) K/uL Baso # (Auto) 0.0 (0.0-0.1) K/uL Nucleated RBC % 0.0 /100WBC Nucleated RBCs # 0 K/uL Sodium 139 (136-148) mmol/L Potassium 4.0 (3.5-5.1) mmol/L Chloride 102 (98-107) mmol/L Carbon Dioxide 28.3 (21.0-32.0) mmol/L BUN 18 (7.0-18.0) mg/dL Creatinine 1.4 H (0.8-1.3) mg/dL Est Cr Clr Drug Dosing 78.94 mL/min Estimated GFR (MDRD) 59.1 ml/min Glucose 102 (74-106) mg/dL Calcium 9.0 (8.5-10.1) mg/dL Jarod Results Last 24 Hours: Microbiology 04/14/20 08:06 Aerobic Blood Culture - Preliminary Blood - Venous - Lab Draw NO GROWTH AFTER 4 DAYS Anaerobic Blood Culture - Preliminary NO GROWTH AFTER 4 DAYS 04/14/20 07:54 Aerobic Blood Culture - Preliminary Blood - Venous NO GROWTH AFTER 4 DAYS Anaerobic Blood Culture - Preliminary NO GROWTH AFTER 4 DAYS Med Orders - Current: Current Medications Diphenhydramine HCl (Benadryl) 25 mg PO Q6H PRN PRN Reason: Itching Last Admin: 04/18/20 04:09 Dose: 25 mg Documented by: Enoxaparin Sodium (Lovenox) 40 mg SUBCUT Q24H [facility] Last Admin: 04/17/20 12:52 Dose: Not Given Documented by: Vancomycin HCl 1.5 gm/ Premix 300 mls @ 150 mls/hr IV Q12H [facility] Last Admin: 04/17/20 23:11 Dose: 150 mls/hr Documented by: Ceftriaxone Sodium/Dextrose 1 (gm/ Premix) 50 mls @ 100 mls/hr IV Q24H [facility] Last Admin: 04/17/20 17:55 Dose: 100 mls/hr Documented by: Sodium Chloride (Normal Saline) 1,000 mls @ 999 mls/hr IV STAT ONE Stop: 04/18/20 11:37 Last Admin: 04/18/20 10:58 Dose: 999 mls/hr Documented by: Sodium Chloride (Normal Saline) 10 ml IV ASDIRECTED PRN PRN Reason: IV Use Last Admin: 04/14/20 08:02 Dose: 10 ml Documented by: Sodium Chloride (Saline Flush) 10 ml FLUSH ASDIRECTED PRN PRN Reason: Keep Vein Open Last Admin: 04/14/20 08:02 Dose: 10 ml Documented by: Sodium Chloride (Saline Flush) 2.5 ml FLUSH ASDIRECTED PRN PRN Reason: Keep Vein Open Last Admin: 04/14/20 08:02 Dose: 2.5 ml Documented by: Vancomycin HCl (Pharmacy To Dose - Vancomycin) 1 dose .XX ASDIRECTED [facility] Discontinued Medications Diphenhydramine HCl (Benadryl) 25 mg IVPUSH ONETIME ONE Stop: 04/14/20 07:54 Last Admin: 04/14/20 08:01 Dose: 25 mg Documented by: Diphenhydramine HCl (Benadryl) 50 mg IVPUSH ONETIME ONE Stop: 04/17/20 11:15 Last Admin: 04/17/20 20:00 Dose: Not Given Documented by: Diphenhydramine HCl (Benadryl) 50 mg IVPUSH ONETIME ONE Stop: 04/17/20 13:31 Last Admin: 04/17/20 13:53 Dose: 50 mg Documented by: Heparin Sodium (Porcine) (Heparin Sodium) 5,000 units SUBCUT Q8H [facility] Last Admin: 04/16/20 03:59 Dose: Not Given Documented by: Sodium Chloride (Normal Saline) 1,000 mls @ 125 mls/hr IV ASDIRECTED [facility] Stop: 04/14/20 20:00 Last Infusion: 04/14/20 08:14 Dose: 125 mls/hr Documented by: Vancomycin HCl 1.5 gm/ Premix 300 mls @ 150 mls/hr IV ONETIME ONE Stop: 04/14/20 09:58 Last Admin: 04/14/20 08:05 Dose: 150 mls/hr Documented by: Cefepime HCl 2 gm/ Premix 50 mls @ 100 mls/hr IV ONETIME ONE Stop: 04/14/20 10:53 Last Admin: 04/14/20 11:48 Dose: 100 mls/hr Documented by: Cefepime HCl 2 gm/ Premix 50 mls @ 100 mls/hr IV Q12H [facility] Last Admin: 04/15/20 10:29 Dose: 100 mls/hr Documented by: Methylprednisolone Sodium Succinate (Solu-Medrol) 40 mg IV ONETIME ONE Stop: 04/17/20 11:16 Last Admin: 04/17/20 12:45 Dose: 40 mg Documented by: Methylprednisolone Sodium Succinate (Solu-Medrol) 40 mg IVPUSH ONETIME ONE Stop: 04/18/20 10:39 Last Admin: 04/18/20 10:57 Dose: 40 mg Documented by: Sepsis Event Note - Focused Exam Vital Signs: Vital Signs Temp Pulse Resp BP Pulse Ox 04/18/20 07:49 36.6 C 90 18 122/62 96 04/18/20 04:07 36.6 C 73 17 115/70 96 Date Exam was Performed: 04/18/20 Time Exam was Performed: 11:23 - Plan Plan:: I have seen and evaluated the patient and agree with the residents note unless specified in my note
[2020-04-17] MEDS: Enoxaparin 40 MG/0.4 ML Syringe SUBCUT SCH (12:52)
[2020-04-17] MEDS ORDERED: cefTRIAXone 1 GM in Premix Bag 1 BAG IV SCH (17:00)
[2020-04-18] MEDS: diphenhydrAMINE 25 MG Cap PO PRN (04:09)
[2020-04-18 05:51] LABS: CARBON DIOXIDE,CO2 28.3 mmol/L (21.0-32.0)
[2020-04-18] MEDS ORDERED: Sodium Chloride 0.9% 1,000 ML IV ONE (10:37)
[2020-04-18] MEDS ORDERED: methylPREDNISolone Sodium Succinate 40 MG/1 ML SDV IVPUSH ONE (10:38)
[2020-04-18] MEDS ORDERED: cefTRIAXone 1 GM in Premix Bag 1 BAG IV SCH (12:00)
[2020-04-18] MEDS: Enoxaparin 40 MG/0.4 ML Syringe SUBCUT SCH (12:34)
--- NOTE | 2020-04-18 12:52 | PCM.DCSUM1 ---
<Suresh Whitney - Last Filed: 04/18/20 13:30> Discharge Summary - Hospital Course Free Text/Narrative:: 29-year-old male admitted for RLE cellulitis after failing outpatient therapy with keflex. He has a PMH of asthma. On admission, x-ray of right tib/fib showed soft tissue swelling. ESR and CRP normal. COVID19 test negative. Blood cultures were negative. Patient was started on IV vancomycin and cefepime. He reports small bumps and itchiness on his hands so cefepime was discontinued. His RLE cellulitis steadily improved and IV ceftriaxone was added to provide streptococcus coverage. There was suspected to be a component of an allergic reaction in addition the cellulitis so he was given IV solumedrol and PO benadryl. On day of discharge, there was significant improvement in his cellulitis. Patient was discharged on a 7 more days of PO Bactrim and a short prednisone taper course. He was noted to have a mild TAB as his creatinine bumped to 1.3. He encouraged to keep hydrated and given a script to recheck BMP in 1 week with results sent to his PCP Elsa Arrington DNP with follow-up appointment. - Discharge Data Discharge Date: 04/18/20 Discharge Disposition: Home, Self-Care 01 Condition: Stable - Referral to Home Health Primary Care Physician: PCP None - Patient Instructions Diet: Usual Diet as Tolerated Activity: As Tolerated Notify Provider of: Fever, Increased Pain, Swelling and Redness, Drainage, Nausea and/or Vomiting - Discharge Plan *PRESCRIPTION DRUG MONITORING PROGRAM REVIEWED*: Not Applicable *COPY OF PRESCRIPTION DRUG MONITORING REPORT IN PATIENT DAMIEN: Not Applicable Prescriptions/Med Rec: Sulfamethoxazole/Trimethoprim [Bactrim Ds Tablet] 1 each PO BID 7 Days #14 tablet predniSONE [Prednisone] 10 mg PO DAILY 6 Days #14 tablet Home Medications: Home Meds Sulfamethoxazole/Trimethoprim [Bactrim Ds Tablet] 1 each PO BID 7 Days #14 tablet 04/18/20 [Rx] predniSONE [Prednisone] 10 mg PO DAILY 6 Days #14 tablet 04/18/20 [Rx] Oxygen Therapy Mode: Room Air Patient Handouts: Cellulitis, Adult, Prednisone tablets, Sulfamethoxazole; Trimethoprim, SMX-TMP tablets Referrals: Pop Coker,Bernardo [Ordering Only Provider] - Elsa Lindsey [employer] [Nurse Practitioner] - 05/02/20 3:45 pm (Please arrive at the outpatient lab one hour prior to appointment to get labs drawn. Please arrive 15 minutes early to appointment with your insurance cards, identification and your own facemask.) - Discharge Summary/Plan Comment DC Time >30 min.: No - Patient Data Vitals - Most Recent: Last Vital Signs Temp 36.6 C 04/18/20 07:49 Pulse 90 04/18/20 07:49 Resp 18 04/18/20 07:49 BP 122/62 04/18/20 07:49 Pulse Ox 96 04/18/20 07:49 Weight - Most Recent: 102.6 kg I&O - Last 24 hours: Intake & Output 04/17/20 04/18/20 04/18/20 22:59 06:59 14:59 Intake Total 590 1200 Output Total 620 1300 Balance -30 -100 Lab Results - Last 24 hrs: Laboratory Results - last 24 hr 04/18/20 04/18/20 Range/Units 05:19 05:19 WBC 11.77 H (4.0-11.0) K/uL RBC 4.66 (4.50-5.90) M/uL Hgb 13.8 (13.0-17.0) g/dL Hct 41.2 (38.0-50.0) % MCV 88.4 (80.0-98.0) fL MCH 29.6 (27.0-32.0) pg MCHC 33.5 (31.0-37.0) g/dL RDW Std Deviation 43.6 (28.0-62.0) fl RDW Coeff of Elizabeth 13 (11.0-15.0) % Plt Count 329 (150-400) K/uL MPV 10.40 (7.40-12.00) fL Neut % (Auto) 78.6 (48.0-80.0) % Lymph % (Auto) 10.8 L (16.0-40.0) % [place] % (Auto) 8.2 (0.0-15.0) % Eos % (Auto) 2.1 (0.0-7.0) % Baso % (Auto) 0.3 (0.0-1.5) % Neut # (Auto) 9.3 H (1.4-5.7) K/uL Lymph # (Auto) 1.3 (0.6-2.4) K/uL [place] # (Auto) 1.0 H (0.0-0.8) K/uL Eos # (Auto) 0.3 (0.0-0.7) K/uL Baso # (Auto) 0.0 (0.0-0.1) K/uL Nucleated RBC % 0.0 /100WBC Nucleated RBCs # 0 K/uL Sodium 139 (136-148) mmol/L Potassium 4.0 (3.5-5.1) mmol/L Chloride 102 (98-107) mmol/L Carbon Dioxide 28.3 (21.0-32.0) mmol/L BUN 18 (7.0-18.0) mg/dL Creatinine 1.4 H (0.8-1.3) mg/dL Est Cr Clr Drug Dosing 78.94 mL/min Estimated GFR (MDRD) 59.1 ml/min Glucose 102 (74-106) mg/dL Calcium 9.0 (8.5-10.1) mg/dL C[facility]Y Results - Last 24 hrs: Microbiology 04/14/20 08:06 Aerobic Blood Culture - Preliminary Blood - Venous - Lab Draw NO GROWTH AFTER 4 DAYS Anaerobic Blood Culture - Preliminary NO GROWTH AFTER 4 DAYS 04/14/20 07:54 Aerobic Blood Culture - Preliminary Blood - Venous NO GROWTH AFTER 4 DAYS Anaerobic Blood Culture - Preliminary NO GROWTH AFTER 4 DAYS Med Orders - Current: Current Medications Diphenhydramine HCl (Benadryl) 25 mg PO Q6H PRN PRN Reason: Itching Last Admin: 04/18/20 04:09 Dose: 25 mg Documented by: Enoxaparin Sodium (Lovenox) 40 mg SUBCUT Q24H [facility] Last Admin: 04/18/20 12:34 Dose: Not Given Documented by: Vancomycin HCl 1.5 gm/ Premix 300 mls @ 150 mls/hr IV Q12H [facility] Last Admin: 04/17/20 23:11 Dose: 150 mls/hr Documented by: Sodium Chloride (Normal Saline) 10 ml IV ASDIRECTED PRN PRN Reason: IV Use Last Admin: 04/14/20 08:02 Dose: 10 ml Documented by: Sodium Chloride (Saline Flush) 10 ml FLUSH ASDIRECTED PRN PRN Reason: Keep Vein Open Last Admin: 04/14/20 08:02 Dose: 10 ml Documented by: Sodium Chloride (Saline Flush) 2.5 ml FLUSH ASDIRECTED PRN PRN Reason: Keep Vein Open Last Admin: 04/14/20 08:02 Dose: 2.5 ml Documented by: Vancomycin HCl (Pharmacy To Dose - Vancomycin) 1 dose .XX ASDIRECTED [facility] Discontinued Medications Diphenhydramine HCl (Benadryl) 25 mg IVPUSH ONETIME ONE Stop: 04/14/20 07:54 Last Admin: 04/14/20 08:01 Dose: 25 mg Documented by: Diphenhydramine HCl (Benadryl) 50 mg IVPUSH ONETIME ONE Stop: 04/17/20 11:15 Last Admin: 04/17/20 20:00 Dose: Not Given Documented by: Diphenhydramine HCl (Benadryl) 50 mg IVPUSH ONETIME ONE Stop: 04/17/20 13:31 Last Admin: 04/17/20 13:53 Dose: 50 mg Documented by: Heparin Sodium (Porcine) (Heparin Sodium) 5,000 units SUBCUT Q8H [facility] Last Admin: 04/16/20 03:59 Dose: Not Given Documented by: Sodium Chloride (Normal Saline) 1,000 mls @ 125 mls/hr IV ASDIRECTED [facility] Stop: 04/14/20 20:00 Last Infusion: 04/14/20 08:14 Dose: 125 mls/hr Documented by: Vancomycin HCl 1.5 gm/ Premix 300 mls @ 150 mls/hr IV ONETIME ONE Stop: 04/14/20 09:58 Last Admin: 04/14/20 08:05 Dose: 150 mls/hr Documented by: Cefepime HCl 2 gm/ Premix 50 mls @ 100 mls/hr IV ONETIME ONE Stop: 04/14/20 10:53 Last Admin: 04/14/20 11:48 Dose: 100 mls/hr Documented by: Cefepime HCl 2 gm/ Premix 50 mls @ 100 mls/hr IV Q12H [facility] Last Admin: 04/15/20 10:29 Dose: 100 mls/hr Documented by: Ceftriaxone Sodium/Dextrose 1 (gm/ Premix) 50 mls @ 100 mls/hr IV Q24H [facility] Last Admin: 04/17/20 17:55 Dose: 100 mls/hr Documented by: Sodium Chloride (Normal Saline) 1,000 mls @ 999 mls/hr IV STAT ONE Stop: 04/18/20 11:37 Last Admin: 04/18/20 10:58 Dose: 999 mls/hr Documented by: Ceftriaxone Sodium/Dextrose 1 (gm/ Premix) 50 mls @ 100 mls/hr IV 04/18/20@1200 [facility] Stop: 04/18/20 12:29 Last Admin: 04/18/20 12:27 Dose: 100 mls/hr Documented by: Methylprednisolone Sodium Succinate (Solu-Medrol) 40 mg IV ONETIME ONE Stop: 04/17/20 11:16 Last Admin: 04/17/20 12:45 Dose: 40 mg Documented by: Methylprednisolone Sodium Succinate (Solu-Medrol) 40 mg IVPUSH ONETIME ONE Stop: 04/18/20 10:39 Last Admin: 04/18/20 10:57 Dose: 40 mg Documented by: <Amando Sanchez - Last Filed: 04/21/20 13:11> Discharge Summary - Hospital Course Free Text/Narrative:: I have seen and evaluated the patient and agree with the residents note unless specified in my note - Referral to Home Health Primary Care Physician: PCP None - Patient Data Vitals - Most Recent: Last Vital Signs Temp 36.6 C 04/18/20 11:00 Pulse 88 04/18/20 11:00 Resp 18 04/18/20 11:00 BP 126/75 04/18/20 11:00 Pulse Ox 96 04/18/20 11:00 Med Orders - Current: Current Medications Discontinued Medications Diphenhydramine HCl (Benadryl) 25 mg IVPUSH ONETIME ONE Stop: 04/14/20 07:54 Last Admin: 04/14/20 08:01 Dose: 25 mg Documented by: Diphenhydramine HCl (Benadryl) 25 mg PO Q6H PRN PRN Reason: Itching Last Admin: 04/18/20 04:09 Dose: 25 mg Documented by: Diphenhydramine HCl (Benadryl) 50 mg IVPUSH ONETIME ONE Stop: 04/17/20 11:15 Last Admin: 04/17/20 20:00 Dose: Not Given Documented by: Diphenhydramine HCl (Benadryl) 50 mg IVPUSH ONETIME ONE Stop: 04/17/20 13:31 Last Admin: 04/17/20 13:53 Dose: 50 mg Documented by: Enoxaparin Sodium (Lovenox) 40 mg SUBCUT Q24H [facility] Last Admin: 04/18/20 12:34 Dose: Not Given Documented by: Heparin Sodium (Porcine) (Heparin Sodium) 5,000 units SUBCUT Q8H [facility] Last Admin: 04/16/20 03:59 Dose: Not Given Documented by: Sodium Chloride (Normal Saline) 1,000 mls @ 125 mls/hr IV ASDIRECTED [facility] Stop: 04/14/20 20:00 Last Infusion: 04/14/20 08:14 Dose: 125 mls/hr Documented by: Vancomycin HCl 1.5 gm/ Premix 300 mls @ 150 mls/hr IV ONETIME ONE Stop: 04/14/20 09:58 Last Admin: 04/14/20 08:05 Dose: 150 mls/hr Documented by: Cefepime HCl 2 gm/ Premix 50 mls @ 100 mls/hr IV ONETIME ONE Stop: 04/14/20 10:53 Last Admin: 04/14/20 11:48 Dose: 100 mls/hr Documented by: Cefepime HCl 2 gm/ Premix 50 mls @ 100 mls/hr IV Q12H [facility] Last Admin: 04/15/20 10:29 Dose: 100 mls/hr Documented by: Vancomycin HCl 1.5 gm/ Premix 300 mls @ 150 mls/hr IV Q12H [facility] Last Admin: 04/18/20 13:07 Dose: 150 mls/hr Documented by: Ceftriaxone Sodium/Dextrose 1 (gm/ Premix) 50 mls @ 100 mls/hr IV Q24H [facility] Last Admin: 04/17/20 17:55 Dose: 100 mls/hr Documented by: Sodium Chloride (Normal Saline) 1,000 mls @ 999 mls/hr IV STAT ONE Stop: 04/18/20 11:37 Last Admin: 04/18/20 10:58 Dose: 999 mls/hr Documented by: Ceftriaxone Sodium/Dextrose 1 (gm/ Premix) 50 mls @ 100 mls/hr IV 04/18/20@1200 [facility] Stop: 04/18/20 12:29 Last Admin: 04/18/20 12:27 Dose: 100 mls/hr Documented by: Methylprednisolone Sodium Succinate (Solu-Medrol) 40 mg IV ONETIME ONE Stop: 04/17/20 11:16 Last Admin: 04/17/20 12:45 Dose: 40 mg Documented by: Methylprednisolone Sodium Succinate (Solu-Medrol) 40 mg IVPUSH ONETIME ONE Stop: 04/18/20 10:39 Last Admin: 04/18/20 10:57 Dose: 40 mg Documented by: Sodium Chloride (Normal Saline) 10 ml IV ASDIRECTED PRN PRN Reason: IV Use Last Admin: 04/14/20 08:02 Dose: 10 ml Documented by: Sodium Chloride (Saline Flush) 10 ml FLUSH ASDIRECTED PRN PRN Reason: Keep Vein Open Last Admin: 04/14/20 08:02 Dose: 10 ml Documented by: Sodium Chloride (Saline Flush) 2.5 ml FLUSH ASDIRECTED PRN PRN Reason: Keep Vein Open Last Admin: 04/14/20 08:02 Dose: 2.5 ml Documented by: Vancomycin HCl (Pharmacy To Dose - Vancomycin) 1 dose .XX ASDIRECTED [facility]
== END 2020-04-18 15:55 | disposition home or self-care (01) | DRG 383 ==
LOC: MW.ED 07:28 → MW.MS 09:44
PROVIDERS: ADMIT Internal Medicine; ATTEND Internal Medicine
DX: L03.115 Cellulitis of right lower limb (principal); J45.909 Unspecified asthma, uncomplicated; N17.9 Acute kidney failure, unspecified; R21 Rash and other nonspecific skin eruption; Z20.828 Contact with and (suspected) exposure to other viral communicable diseases; Z87.891 Personal history of nicotine dependence
CPT/HCPCS: 36415; 73590-26-RT; 73590-RT; 80048; 80053; 80202; 84145; 85025; 85652; 86140; 87040; 93005; 96365; 96375; 99284; 99284-25; A9270-GY; J0692; J0696; J1200; J2920; J3370; J7030; J7050; U0002

== ENCOUNTER 2023-08-02 19:25 | Emergency (ER) | payer SELFPAY ==
[2023-08-02] MEDS ORDERED: HYDROmorphone 1 MG/ML Syringe IVPUSH ONE (19:28)
[2023-08-02] MEDS ORDERED: Sodium Chloride 0.9% 1,000 ML IV ONE (19:28)
[2023-08-02] MEDS ORDERED: Ondansetron 4 MG/2 ML SDV IVPUSH ONE (19:28)
[2023-08-02] MEDS ORDERED: Diphtheria,Pertussis(Acell),Tetanus Vaccine 0.5 ML Syringe IM ONE (19:39)
[2023-08-02] MEDS ORDERED: Amoxicillin/Clavulanate K 875-125 MG Tab PO ONE (20:41)
[2023-08-02] MEDS ORDERED: Lidocaine 1% 5 ML VIAL INJECT ONE (20:42)
== END 2023-08-02 21:57 | disposition home or self-care (01) ==
LOC: MW.ED 19:25
DX: S62.344A Nondisplaced fracture of base of fourth metacarpal bone, right hand, initial encounter for closed fracture (principal); S62.303B Unspecified fracture of third metacarpal bone, left hand, initial encounter for open fracture; S61.532A Puncture wound without foreign body of left wrist, initial encounter; S51.832A Puncture wound without foreign body of left forearm, initial encounter; W54.0XXA Bitten by dog, initial encounter
CPT/HCPCS: 12001; 73090; 73110; 73130; 90471; 90715; 96361; 96374; 96375; 99283; A9270; J1170; J2405; J7030; 99284; J3490